=== PATIENT | female | born 1960 | race Caucasian/White ===

== ENCOUNTER 2017-04-19 14:00 | Emergency (ER) | payer OTHER ==
[~2017-04-19] VITALS: Ht 172.7 cm; Wt 113.5 kg
[~2017-04-19 14:00] MED LIST: ROSU40 PO
[2017-04-19 14:04] VITALS: BP 147/88; PULSE 75; RESP 20; TEMP 98.1; O2SAT 98
[2017-04-19] MEDS ORDERED: VITA250T3 PO (14:43)
[2017-04-19] MEDS ORDERED: MULT-65 PO (14:43)
[2017-04-19] MEDS ORDERED: ROSU10 PO (14:43)
[2017-04-19] MEDS ORDERED: CALC600T25 (14:43)
[2017-04-19] MEDS ORDERED: FISHCAP4 PO (14:43)
[2017-04-19] MEDS ORDERED: ESTR0.5T PO (14:43)
--- NOTE | 2017-04-19 15:33 | PD ---
HPI Chief Complaint: Eye Problems/Injury Time Seen by Provider: 15:33 Travel History International Travel<30 days: No Contact w/Intl Traveler<30days: No Traveled to known affect area: No History of Present Illness HPI 57-year-old female presents emergency Department with complaint of left eye redness, drainage, itchiness since Friday. She was seen at urgent care on and was given erythromycin ointment for her eye and diagnosed with conjunctivitis. Her symptoms have worsened. Denies eye pain. Denies trauma to the eye or known foreign body. Reports blurry vision. Denies fever, vomiting. Reports light yellowish drainage from her eyes and crusting in the mornings when she wakes up. Reports swelling of the sclera of her eye. Reports onset of swelling around the eye today. Symptoms are mild in severity. Allergies to amoxicillin. Has no other medical complaints. No other modifying factors or associated signs and symptoms. PFSH Past Medical History Hx Anticoagulant Therapy: No Cardiovascular Problems: No High Cholesterol: Yes Chemotherapy: No Cerebrovascular Accident: No Diabetes: No Diminished Hearing: No Gastrointestinal Disorders: Yes (GERD) Respiratory: No ?: Not Past Surgical History Abdominal Surgery: Yes (GALLBLADDER) Cholecystectomy: Yes Hysterectomy: No Tonsillectomy: Yes Social History Alcohol Use: No Tobacco Use: No Substance Use: No Allergies-Medications (Allergen,Severity, Reaction): Coded Allergies: amoxicillin (Unverified Allergy, Unknown, 04/08/17) Reported Meds & Prescriptions Reported Meds & Active Scripts Active Clindamycin (Clindamycin HCl) 150 Mg Cap 300 Mg PO Q8HR 10 Days Polytrim Opth Drops (Polymyxin/Trimethoprim Sulfate) 10,000-0.1 Unit/Ml-% Soln 1 Drop LEFT EYE Q6HR Reported Vitamin C (Ascorbic Acid) 250 Mg Tab 500 Mg PO Calcium (Calcium Carbonate) 600 Mg Tab Fish Oil + D3 (Fish Oil-Cholecalciferol) 1,200-1,000 Mg-Unit Cap 1 Cap PO DAILY Multi-Vitamin Daily (Multiple Vitamin) 1 Tab Tab 1 Tab PO DAILY Estradiol 0.5 Mg Tab 0.5 Mg PO DAILY Crestor (Rosuvastatin Calcium) 10 Mg Tab 10 Mg PO DAILY Review of Systems Except as stated in HPI: all other systems reviewed are Neg Physical Exam Narrative GENERAL: Well-nourished, well-developed female patient, in no acute distress; afebrile, nontoxic-appearing SKIN: Warm and dry. HEAD: Atraumatic. Normocephalic. EYES: Pupils equal and round at 3 mm with brisk reaction. PERRLA. EOMI. visual acuity bilateral 20/30; right 20/30; left 20/50 with corrective lenses. Left lid eversion with no foreign body noted. Lower scleral with chemosis. Left eye with scleral erythema and mild lid edema; lower lid with some mild erythema consistent with possible preseptal cellulitis. No orbital tenderness on palpation. Left eye without photophobia. No consensual photophobia. No scleral icterus. Clear drainage. Mercado lamp exam normal. ENT: Mucosa pink and moist. Airway patent. NECK: Trachea midline. CARDIOVASCULAR: Regular rate. RESPIRATORY: No accessory muscle use. GASTROINTESTINAL: Obese. NEUROLOGICAL: Awake and alert. Oriented 3. No obvious cranial nerve deficits. Motor grossly within normal limits. Normal speech. PSYCHIATRIC: Appropriate mood and affect; insight and judgment normal. Data Data Last Documented VS Vital Signs Date Time Temp Pulse Resp B/P (MAP) Pulse Ox O2 Delivery O2 Flow Rate FiO2 04/19/17 14:04 98.1 75 20 147/88 (107) 98 Room Air Orders Orders Proparacaine 0.5% Opth Soln (Alcaine 0.5 (04/19/17 15:45) MDM Medical Decision Making Medical Screen Exam Complete: Yes Emergency Medical Condition: Yes Medical Record Reviewed: Yes Differential Diagnosis Allergic conjunctivitis, viral conjunctivitis, preseptal cellulitis Narrative Course 57-year-old female physical exam consistent with preseptal cellulitis and conjunctivitis of the left eye. Patient is afebrile and nontoxic-appearing. Mercado lamp exam is unremarkable. Instructed patient to stop her erythromycin eye ointment. Polytrim eyedrops, clindamycin prescribed for home. Instructed patient to try allergy eyedrops [id number] also. Instructed patient to follow up with casting machine adjuster on Friday. Instructed patient to follow up with primary care provider. Patient verbalizes understanding and agreement with treatment plan. Patient is medically cleared and stable for discharge. Discussed reasons to return to the emergency department. Patient agrees with treatment plan. The patients vital signs are stable and the patient is stable for outpatient follow-up and treatment. Patient discharged home, stable and in no acute distress. Diagnosis Primary Impression: Preseptal cellulitis of left eye Additional Impression: Conjunctivitis, left eye Qualified Codes: H10.9 - Unspecified conjunctivitis Referrals: [facility] Primary Care Physician Patient Instructions: Conjunctivitis (ED), General Instructions Departure Forms: Tests/Procedures, Work Release Enter return to work date: Apr 22, 2017 Additional Instructions: Conjunctivitis is contagious Use antibiotic eye drops as prescribed; oral antibiotics as prescribed Apply warm or cool compresses to both eyes for a few minutes several times daily to minimize irritation Avoid triggers, such as allergens, that may irritate your eyes Wash your hands frequently Do not share washcloths, towels, pillows, or any other material that has touched your eyes with any other household members Follow-up with your primary care provider Follow-up with ophthalmology on Friday, April 21, 2017 Return to the emergency department immediately with worsening of symptoms Med/Other Pt SpecificInfo: Prescription(s) given, Med Stopped Scripts Clindamycin (Clindamycin) 150 Mg Cap 300 MG PO Q8HR for Infection for 10 Days, CAP 0 Refills Prov: Diana Bass 04/19/17 Polymyxin B-Trimethoprim Opth Drops (Polytrim Opth Drops) 10,000-0.1 Unit/Ml-% Soln 1 DROP LEFT EYE Q6HR for Mgmt Bacterial Infection, #1 BOTTLE 0 Refills Prov: Diana Bass 04/19/17 Disposition: 01 DISCHARGE HOME Condition: Stable Diana Bass Apr 19, 2017 15:33
[2017-04-19] MEDS ORDERED: POLY10O LEFT EYE (15:38)
[2017-04-19] MEDS ORDERED: CLIN1CAP5 PO (15:38)
[2017-04-19] MEDS ORDERED: PROPARACAINE HCL 0.5% OPHT SOLN 15 ML BTL LEFT EYE ONE (15:45)
[2017-04-20] MEDS ORDERED: PRED-503 PO (13:31)
== END 2017-04-19 16:15 | disposition home or self-care (01) ==
LOC: NEPK 14:00
DX: L03.213 Periorbital cellulitis (principal); H10.9 Unspecified conjunctivitis; E78.00 Pure hypercholesterolemia, unspecified; Z87.19 Personal history of other diseases of the digestive system
CPT/HCPCS: 99284

== ENCOUNTER 2017-04-20 11:08 | Emergency (ER) | payer OTHER ==
[~2017-04-20 11:08] MED LIST changes: +CALC600T25; +CLIN1CAP5 PO; +ESTR0.5T PO; +FISHCAP4 PO; +MULT-65 PO; +POLY10O LEFT EYE; +ROSU10 PO; -ROSU40 PO; +VITA250T3 PO
[2017-04-20 11:09] VITALS: BP 142/78; PULSE 66; RESP 20; TEMP 97.8; O2SAT 98
[2017-04-20] MEDS ORDERED: SODIUM CHLOR 0.9% 1000 ML INJ 1,000 ML IV ONE (12:15)
[2017-04-20 12:34] LABS: AUTOMATED NEUTROPHIL # 3.8 TH/MM3 (1.8-7.7); BASOPHIL % 0.5 % (0.0-2.0); EOSINOPHIL # 0.2 TH/MM3 (0-0.4); EOSINOPHIL % 2.8 % (0.0-4.0); HEMATOCRIT 44.2 % (35.0-46.0); HEMO FLAGS DIFF FINAL; LYMPH % 28.4 % (9.0-44.0); LYMPHOCYTE # 1.8 TH/MM3 (1.0-4.8); MEAN CELL VOLUME 87.3 FL (80.0-100.0); MEAN CORPUSCULAR HEMOGLOBIN 28.4 PG (27.0-34.0); MEAN CORPUSCULAR HGB CONC 32.6 % (32.0-36.0); MONO % 9.4 % (0.0-8.0); NEUT % 58.9 % (16.0-70.0); PLATELET COUNT 283 TH/MM3 (150-450); RED BLOOD COUNT 5.06 MIL/MM3 (4.00-5.30); RED CELL DISTRIBUTION WIDTH 13.3 % (11.6-17.2); WHITE BLOOD COUNT 6.5 TH/MM3 (4.0-11.0)
--- NOTE | 2017-04-20 12:34 | PD ---
HPI Chief Complaint: Eye Problems/Injury Time Seen by Provider: 11:57 Travel History International Travel<30 days: Yes Contact w/Intl Traveler<30days: Yes Name of Country Traveled to: [facility] Traveled to known affect area: No History of Present Illness HPI The patient is a 57-year-old female who presents to the emergency department for left eye irritation. The patient states she recently went on a cruise to the [facility]. The patient was using a new witch solange makeup removal when she started to develop left eye irritation. The patient complained of redness to the left eye with mild itching and then noticed drainage. When the patient returned from the [facility] which an urgent care and was prescribed erythromycin ointment. The patient states that her symptoms continued to progress with mild swelling under the left eye, drainage throughout the day, and was seen in the emergency department where she had an eye exam performed, including Wood's lamp, and was prescribed clindamycin. The patient was advised to return to the emergency department if symptoms progressed. She now complains of mild swelling above the left eye as well as swelling under the left eye, has been taking Benadryl with minimal relief of her symptoms. She does complain of mild photophobia but denies any pain with extraocular movements. She denies any fever, chills, or sweats. She denies any symptoms on the right eye. PFSH Past Medical History Hx Anticoagulant Therapy: No Cardiovascular Problems: No High Cholesterol: Yes Chemotherapy: No Cerebrovascular Accident: No Diabetes: No Diminished Hearing: No Gastrointestinal Disorders: Yes (GERD) GERD: Yes Respiratory: No Tetanus Vaccination: Unknown Influenza Vaccination: No ?: Not Past Surgical History Abdominal Surgery: Yes (GALLBLADDER) Cholecystectomy: Yes Hysterectomy: No Tonsillectomy: Yes Social History Alcohol Use: No Tobacco Use: No Substance Use: No Allergies-Medications (Allergen,Severity, Reaction): Coded Allergies: amoxicillin (Unverified Allergy, Unknown, 04/20/17) Reported Meds & Prescriptions Reported Meds & Active Scripts Active Clindamycin (Clindamycin HCl) 150 Mg Cap 300 Mg PO Q8HR 10 Days Polytrim Opth Drops (Polymyxin/Trimethoprim Sulfate) 10,000-0.1 Unit/Ml-% Soln 1 Drop LEFT EYE Q6HR Reported Vitamin C (Ascorbic Acid) 250 Mg Tab 500 Mg PO Calcium (Calcium Carbonate) 600 Mg Tab Fish Oil + D3 (Fish Oil-Cholecalciferol) 1,200-1,000 Mg-Unit Cap 1 Cap PO DAILY Multi-Vitamin Daily (Multiple Vitamin) 1 Tab Tab 1 Tab PO DAILY Estradiol 0.5 Mg Tab 0.5 Mg PO DAILY Crestor (Rosuvastatin Calcium) 10 Mg Tab 10 Mg PO DAILY Review of Systems Except as stated in HPI: all other systems reviewed are Neg Eyes: Positive: Photophobia, Drainage, Redness, Tearing, No: Blurred Vision, Foreign Body Sensation, Pain, Blindness HENT: No: Headaches Cardiovascular: No: Chest Pain or Discomfort Respiratory: No: Shortness of Breath Gastrointestinal: No: Nausea, Vomiting Skin: Positive Itching, No Rash Physical Exam Narrative GENERAL: Awake, alert, very pleasant 57-year-old female who appears her stated age and is in no acute respiratory distress. SKIN: Focused skin assessment warm/dry. HEAD: Mild edema above the left eye, edema noted inferiorly to the left eye. EYES: Pupils equal and round. Pupils are 4 mm bilateral and reactive. Patient is able to see fingers at a distance of 2 feet without difficulty. Extraocular muscles are intact. There is mild injection of the left eye especially of the inferior conjunctiva as well as chemosis. ENT: No nasal bleeding or discharge. Mucous membranes pink and moist. NECK: Trachea midline. No JVD. CARDIOVASCULAR: Regular rate and rhythm. No murmur appreciated. RESPIRATORY: No accessory muscle use. Clear to auscultation. Breath sounds equal bilaterally. MUSCULOSKELETAL: No obvious deformities. No clubbing. No cyanosis. No edema. NEUROLOGICAL: Awake and alert. No obvious cranial nerve deficits. Motor grossly within normal limits. Normal speech. PSYCHIATRIC: Appropriate mood and affect; insight and judgment normal. Data Data Last Documented VS Vital Signs Date Time Temp Pulse Resp B/P (MAP) Pulse Ox O2 Delivery O2 Flow Rate FiO2 04/20/17 11:09 97.8 66 20 142/78 (99) 98 Room Air Orders Orders Complete Blood Count With Diff (04/20/17 12:12) Basic Metabolic Panel (Bmp) (04/20/17 12:12) Ct Facial Bones W Iv Contrast (04/20/17 ) Sodium Chlor 0.9% 1000 Ml Inj (Ns 1000 M (04/20/17 12:15) Iohexol 350 Inj (Omnipaque 350 Inj) (04/20/17 13:10) Labs Laboratory Tests Test 04/20/17 12:27 White Blood Count 6.5 TH/MM3 Red Blood Count 5.06 MIL/MM3 Hemoglobin 14.4 GM/DL Hematocrit 44.2 % Mean Corpuscular Volume 87.3 FL Mean Corpuscular Hemoglobin 28.4 PG Mean Corpuscular Hemoglobin Concent 32.6 % Red Cell Distribution Width 13.3 % Platelet Count 283 TH/MM3 Mean Platelet Volume 7.9 FL Neutrophils (%) (Auto) 58.9 % Lymphocytes (%) (Auto) 28.4 % Monocytes (%) (Auto) 9.4 % Eosinophils (%) (Auto) 2.8 % Basophils (%) (Auto) 0.5 % Neutrophils # (Auto) 3.8 TH/MM3 Lymphocytes # (Auto) 1.8 TH/MM3 Monocytes # (Auto) 0.6 TH/MM3 Eosinophils # (Auto) 0.2 TH/MM3 Basophils # (Auto) 0.0 TH/MM3 CBC Comment DIFF FINAL Differential Comment Blood Urea Nitrogen 9 MG/DL Creatinine 0.66 MG/DL Random Glucose 90 MG/DL Calcium Level 8.8 MG/DL Sodium Level 141 MEQ/L Potassium Level 3.9 MEQ/L Chloride Level 106 MEQ/L Carbon Dioxide Level 26.1 MEQ/L Anion Gap 9 MEQ/L Estimat Glomerular Filtration Rate 92 ML/MIN [facility] Medical Decision Making Medical Screen Exam Complete: Yes Emergency Medical Condition: Yes Medical Record Reviewed: Yes Interpretation(s) CT the facial bones with contrast reveals normal examination Laboratory Tests Test 04/20/17 12:27 White Blood Count 6.5 TH/MM3 Red Blood Count 5.06 MIL/MM3 Hemoglobin 14.4 GM/DL Hematocrit 44.2 % Mean Corpuscular Volume 87.3 FL Mean Corpuscular Hemoglobin 28.4 PG Mean Corpuscular Hemoglobin Concent 32.6 % Red Cell Distribution Width 13.3 % Platelet Count 283 TH/MM3 Mean Platelet Volume 7.9 FL Neutrophils (%) (Auto) 58.9 % Lymphocytes (%) (Auto) 28.4 % Monocytes (%) (Auto) 9.4 % Eosinophils (%) (Auto) 2.8 % Basophils (%) (Auto) 0.5 % Neutrophils # (Auto) 3.8 TH/MM3 Lymphocytes # (Auto) 1.8 TH/MM3 Monocytes # (Auto) 0.6 TH/MM3 Eosinophils # (Auto) 0.2 TH/MM3 Basophils # (Auto) 0.0 TH/MM3 CBC Comment DIFF FINAL Differential Comment Blood Urea Nitrogen 9 MG/DL Creatinine 0.66 MG/DL Random Glucose 90 MG/DL Calcium Level 8.8 MG/DL Sodium Level 141 MEQ/L Potassium Level 3.9 MEQ/L Chloride Level 106 MEQ/L Carbon Dioxide Level 26.1 MEQ/L Anion Gap 9 MEQ/L Estimat Glomerular Filtration Rate 92 ML/MIN Differential Diagnosis Differential diagnosis includes conjunctivitis, allergic conjunctivitis, allergic reaction, preseptal cellulitis, post-septal cellulitis, iritis, uveitis , corneal ulcer, corneal abrasion. Narrative Course IV was established, labs are drawn and sent, and the patient was placed on cardiac telemetry monitoring and continuous pulse oximetry monitoring. CT of the facial bones with IV contrast was ordered to rule out post septal cellulitis. The patient received 1 L of IV fluids as she was going to have contrast administered. The patient's labs are unremarkable. CT is negative for post septal abscess or cellulitis. The patient does have a slightly red eye , however, there is chemosis and mild edema around the left eye, suspicious for possible allergic reaction. The patient will be placed on prednisone, is advised to continue her antibiotics ankle compresses to the left eye. She is advised to follow-up with ophthalmology tomorrow. The patient agrees and understands. Diagnosis Primary Impression: Redness of left eye Referrals: Cee Phoenix MD call for appointment Call for an appointment tomorrow morning after 8:[address] Phoenix. Additional Instructions: Medications as directed. Cool compresses. Continue Benadryl. Return if symptoms worsen or progress. Please provide the patient a copy of her labs and CT results at discharge. Med/Other Pt SpecificInfo: Prescription(s) given Scripts Prednisone (Deltasone) 20 Mg Tab 40 MG PO DAILY for 4 Days, TAB 0 Refills Prov: Soren Castro MD 04/20/17 Disposition: 01 DISCHARGE HOME Condition: Stable Soren Castro MD Apr 20, 2017 12:34
[2017-04-20 12:51] LABS: BICARBONATE 26.1 MEQ/L (21.0-32.0); POTASSIUM 3.9 MEQ/L (3.5-5.1)
[2017-04-20] MEDS ORDERED: IOHEXOL 350 MG/ML 10 ML VIAL (for RAD DIAG) IVCONTRAST ONE (13:10)
--- NOTE | 2017-04-20 13:21 | RADRPT ---
EXAM DATE/TIME: 04/20/2017 13:05 [facility] COMPARISON: No previous studies available for comparison. INDICATIONS : Post septal abscess. IV CONTRAST: 71 cc Omnipaque 350 (iohexol) IV RADIATION DOSE: 36.81 CTDIvol (mGy) MEDICAL HISTORY : Gastroesophageal reflux disease. SURGICAL HISTORY : Cholecystectomy. ENCOUNTER: Initial ACUITY: 2 days PAIN SCALE: 5/10 LOCATION: Left cranial and eye. TECHNIQUE: Volumetric scanning of the facial bones was performed. Using automated exposure control and adjustme nt of the mA and/or kV according to patient size, radiation dose was kept as low as reasonably achiev able to obtain optimal diagnostic quality images. DICOM format image data is available electronicall y for review and comparison. FINDINGS: ORBITS: The orbital and infraorbital osseous structures are intact. The retroconal structures have a normal configuration. No radiopaque foreign bodies are seen. NASAL BONE: The nasal bone and maxillary spine are intact ZYGOMATIC ARCHES: Symmetric without evidence of fracture. SINUSES: The maxillary, ethmoid and frontal sinuses are intact. No air-fluid levels seen. NASAL CAVITY: The nasal septum is intact and midline. The lacrimal ducts are intact. SOFT TISSUES: No radiopaque foreign bodies seen. No soft-tissue swelling is seen. INTRACRANIAL: No intracranial air seen. CRIBIFORM PLATE: Grossly intact. CONCLUSION: Normal examination. Dianna Crump MD on April 20, 2017 at 13:18 Board Certified Radiologist. This report was verified electronically.
[2017-04-20] MEDS ORDERED: PRED-503 PO (13:31)
[2017-04-20] MEDS ORDERED: predniSONE 20 MG TAB PO ONE (13:45)
[2017-04-20 14:00] VITALS: BP 139/81
== END 2017-04-20 14:01 | disposition home or self-care (01) ==
LOC: NEPE 11:08
DX: H57.8 Other specified disorders of eye and adnexa (principal); E78.00 Pure hypercholesterolemia, unspecified; K21.9 Gastro-esophageal reflux disease without esophagitis
CPT/HCPCS: 70487; 80048; 85025; 96360; 99285; J7030; J7512; Q9967

== ENCOUNTER 2017-10-09 11:37 | Emergency (ER) | payer OTHER ==
[~2017-10-09] VITALS: Ht 172.7 cm; Wt 113.0 kg
[~2017-10-09 11:37] MED LIST changes: -CALC600T25; +CALC600T5; +CLIN150C14 PO; -CLIN1CAP5 PO; +PRED-503 PO
[2017-10-09 11:41] VITALS: BP 125/84; PULSE 66; RESP 16; TEMP 98.2; O2SAT 98
--- NOTE | 2017-10-09 12:31 | PD ---
HPI Chief Complaint: Skin Problem Time Seen by Provider: 12:01 Travel History International Travel<30 days: No Contact w/Intl Traveler<30days: No Traveled to known affect area: No History of Present Illness HPI 57-year-old female presents to the emergency room for evaluation of superficial blood clot to the left antecubital space. Patient states about 1 week ago her friend dropped a refrigerator and she reached out with her left arm to grab it. The edge of the refrigerator struck her left, proximal forearm. Patient states she had a large bruise there afterwards which was not concerning. But after the bruise began to clear, she noticed a large, linear lump that was tender when she pushes on it. She is concerned for a blood clot. She has not taken anything or done anything for symptoms. She called her primary care physician who told her to come to the emergency room for an ultrasound evaluation. No history of blood clots. She is not on any blood thinners. She only has history of hypercholesterolemia. Denies paresthesias. PFSH Past Medical History Hx Anticoagulant Therapy: No Cardiovascular Problems: No High Cholesterol: Yes Chemotherapy: No Cerebrovascular Accident: No Diabetes: No Diminished Hearing: No Gastrointestinal Disorders: Yes (GERD) GERD: Yes Respiratory: No Tetanus Vaccination: < 5 Years Influenza Vaccination: No Past Surgical History Abdominal Surgery: Yes (GALLBLADDER) Cholecystectomy: Yes Hysterectomy: No Tonsillectomy: Yes Other Surgery: Yes Social History Alcohol Use: No Tobacco Use: No Substance Use: No Allergies-Medications (Allergen,Severity, Reaction): Coded Allergies: amoxicillin (Unverified Allergy, Unknown, 10/09/17) Reported Meds & Prescriptions Reported Meds & Active Scripts Active Deltasone (Prednisone) 20 Mg Tab 40 Mg PO DAILY 4 Days Clindamycin (Clindamycin HCl) 150 Mg Cap 300 Mg PO Q8HR 10 Days Polytrim Opth Drops (Polymyxin/Trimethoprim Sulfate) 10,000-0.1 Unit/Ml-% Soln 1 Drop LEFT EYE Q6HR Reported Vitamin C (Ascorbic Acid) 250 Mg Tab 500 Mg PO Calcium (Calcium Carbonate) 600 Mg Tab Fish Oil + D3 (Fish Oil-Cholecalciferol) 1,200-1,000 Mg-Unit Cap 1 Cap PO DAILY Multi-Vitamin Daily (Multiple Vitamin) 1 Tab Tab 1 Tab PO DAILY Estradiol 0.5 Mg Tab 0.5 Mg PO DAILY Crestor (Rosuvastatin Calcium) 10 Mg Tab 10 Mg PO DAILY Review of Systems Except as stated in HPI: all other systems reviewed are Neg Physical Exam Narrative GENERAL: Well-nourished, well-developed female in no acute distress. Afebrile. Ambulatory. SKIN: Focused skin assessment warm/dry. There is a 2-3 cm superficial cordlike mass to the left proximal forearm with surrounding ecchymosis. It is mildly tender to palpation. No surrounding erythema or edema. No fluctuance or induration. HEAD: Normocephalic. EYES: No scleral icterus. No injection or drainage. NECK: Supple, trachea midline. No JVD or lymphadenopathy. CARDIOVASCULAR: Regular rate and rhythm without murmurs, gallops, or rubs. RESPIRATORY: Breath sounds equal bilaterally. No accessory muscle use. MUSCULOSKELETAL: No cyanosis, or edema. Full range of motion of the left upper extremity. 2+ radial pulse. Data Data Last Documented VS Vital Signs Date Time Temp Pulse Resp B/P (MAP) Pulse Ox O2 Delivery O2 Flow Rate FiO2 10/09/17 11:41 98.2 66 16 125/84 (98) 98 Orders Orders Us Arm Venous Doppler (10/09/17 ) Ed Discharge Order (10/09/17 13:45) [facility] Medical Decision Making Medical Screen Exam Complete: Yes Emergency Medical Condition: Yes Medical Record Reviewed: Yes Differential Diagnosis Superficial thrombophlebitis, hematoma, DVT unlikely Narrative Course 57-year-old female presents to the emergency room for evaluation of cordlike lump to her left antecubital space. Patient is concerned for blood clot because she had an injury to the area about 1 week ago. States it started off as a small bruise but then as the bruise disappeared, the cordlike lump developed. She has no history of blood clots. She is not on blood thinners. Reports mild pain only when pressing on the area. Physical exam reveals a 1-2 cm cordlike lump to left antecubital space with surrounding ecchymosis. No erythema. No lymphangitis. Full range of motion of the left hand. It is neurovascularly intact with 2+ radial pulse. Ultrasound is negative. This is contusion and traumatic hematoma. Patient reassured and told to follow-up with her primary care physician if symptoms persist return for worsening symptoms. She understands and agrees to plan. Diagnosis Primary Impression: Traumatic hematoma of left forearm Qualified Codes: S50.12XA - Contusion of left forearm, initial encounter Referrals: Primary Care Physician Additional Instructions: Apply warm compresses to the area twice daily. Take Tylenol Motrin for pain. Follow-up with primary care physician. Return for worsening symptoms. Disposition: 01 DISCHARGE HOME Condition: Stable Preethi Hdez Oct 09, 2017 12:31
--- NOTE | 2017-10-09 13:34 | RADRPT ---
EXAM DATE/TIME: 10/09/2017 12:38 [facility] COMPARISON: No previous studies available for comparison. INDICATIONS : Left arm pain. MEDICAL HISTORY : Hypercholesterolemia. Gastroesophageal reflux disease. SURGICAL HISTORY : Tonsillectomy. Cholecystectomy. ENCOUNTER: Initial ACUITY: 3 days PAIN SCORE: 4/10 LOCATION: Left arm. FINDINGS: There is spontaneous flow documented in the brachial, basilic, cephalic, axillary, and subclavian vei ns. The vessels are compressible and augmentation response is documented. No filling defects are se en. The flow is phasic with respiration. Direction of flow in the jugular vein is caudal. CONCLUSION: Normal examination. Fede Stokes MD on October 09, 2017 at 13:30 Board Certified Radiologist. This report was verified electronically.
== END 2017-10-09 13:54 | disposition home or self-care (01) ==
LOC: PHEFT 11:37
DX: S50.12XA Contusion of left forearm, initial encounter (principal); E78.00 Pure hypercholesterolemia, unspecified; K21.9 Gastro-esophageal reflux disease without esophagitis; W20.8XXA Other cause of strike by thrown, projected or falling object, initial encounter; Z88.0 Allergy status to penicillin; Z79.899 Other long term (current) drug therapy
CPT/HCPCS: 93971; 99284